=== PATIENT | female | born 1970 | race Two or more races ===

== ENCOUNTER → 2023-09-30 06:49 | Outpatient (REF) | payer OTHER, SELFPAY ==
[2023-09-30 09:19] LABS: HDL Cholesterol 96 mg/dl; Iron 82 ug/dl (37-170); LDL Cholesterol, Calculated 122 mg/dl; Magnesium 2.2 mg/dl (1.6-2.3); Total Cholesterol 239 mg/dl (50-199); Triglyceride 105 mg/dl (10-149); Very Low Density Lipoprotein 21 mg/dl (0-30); Vitamin D, 25-OH*** 48.3 ng/mL (30-80)
[2023-09-30 09:28] LABS: Percent Saturation 19 % (20-50); Total Iron Binding Capacity 415 ug/dl (265-497)
[2023-09-30 09:33] LABS: TSH Reflex To Free T4 < 0.02 uIU/ml (0.47-4.68)
[2023-09-30 09:37] LABS: Ferritin 8.9 ng/ml (6.24-137)
[2023-09-30 10:01] LABS: Free T4 0.75 ng/dl (0.78-2.19)
[2023-09-30 10:09] LABS: Folate > 20.0 ng/ml (2.76-20); Vitamin B12 942 pg/ml (239-931)
[2023-10-02 00:03] LABS: Zinc 81.4 ug/dL (60.0-120.0)
== END ==
LOC: HWLAB 06:49
PROVIDERS: ATTENDING PHYSICIAN Internal Medicine Gastroenterology
DX: K31.84 Gastroparesis (principal); D51.9 Vitamin B12 deficiency anemia, unspecified; D50.0 Iron deficiency anemia secondary to blood loss (chronic)
CPT/HCPCS: 36415; 80061; 82180; 82306; 82607; 82728; 82746; 83540; 83550; 83735; 84425; 84439; 84443; 84630